=== PATIENT | female | born 1995 | race Hispanic/Latino ===

== ENCOUNTER 2025-01-25 06:15 | Day surgery (SDC) | payer BC ==
[2025-01-24 11:00] VITALS: BP 117/78; PULSE 68; RESP 18; TEMP 98.4
[2025-01-24 11:31] LABS: BASOPHILS # (AUTO) 0.02 K/uL (0.00-0.20); BASOPHILS % (AUTO) 0.2 % (0.0-5.0); EOSINOPHILS # (AUTO) 0.06 K/uL (0.00-0.70); EOSINOPHILS % (AUTO) 0.7 % (0.0-8.0); HEMATOCRIT 43.2 % (36-48); IMMATURE GRANULOCYTE ABSOLUTE 0.01 K/uL (0-1); LYMPHOCYTES # (AUTO) 1.7 K/uL (1.0-4.8); MEAN CORPUSCULAR HEMOGLOBIN 29.3 pg (27.0-33.0); MEAN CORPUSCULAR HGB CONC 32.9 g/dL (32.0-36.0); MEAN CORPUSCULAR VOLUME 89.3 fL (79-99); MONOCYTES # (AUTO) 0.5 K/uL (0.1-1.0); MONOCYTES % (AUTO) 5.7 % (3.0-13.0); NEUTROPHILS # (AUTO) 5.8 K/uL (1.8-7.7); NEUTROPHILS % (AUTO) 72.3 % (40.0-77.0); PLATELET COUNT (AUTO) 161 K/uL (130-400); RED BLOOD CELL COUNT(AUTO) 4.84 MIL/uL (4.00-5.50); RED CELL DISTRIBUTION WIDTH 14.4 % (11.0-15.5)
[~2025-01-25] VITALS: Ht 157.5 cm; Wt 77.9 kg
[2025-01-25] VITALS (14 sets, daily range): BP systolic 86–110; BP diastolic 48–68; PULSE 66–90; RESP 14–18; TEMP 97–97.6
[2025-01-25] MEDS: LACTATED RINGERS 1000ML 1,000 ML IV ONE (06:59)
[2025-01-25] MEDS ORDERED: FAMOTIDINE 20MG VIAL IV ONE (07:03)
[2025-01-25] MEDS ORDERED: ROPivacaine 0.5% 5MG/ML 30ML ONE (07:12)
[2025-01-25] MEDS ORDERED: ketaMINE 50MG/ML SYRINGE 50 MG/ML DISP.SYRIN ONE (07:12)
[2025-01-25] MEDS ORDERED: LIDOCAINE HCL-MPF 2% 10ML AMP IJ ONE (07:17)
[2025-01-25] MEDS ORDERED: FENTanyl CITRate PF 50 MCG/1 ML 2ML VIAL ONE (07:18)
[2025-01-25] MEDS ORDERED: rocuRONium bROMide 10MG/1ML 5ML VL ONE (07:18)
[2025-01-25] MEDS ORDERED: proPOFol 10 MG/ML 20ML VIAL IV ONE (07:18)
[2025-01-25] MEDS ORDERED: dexaMETHasone SOD PHOSPHATE 10MG/ML 1ML VIAL ONE (07:29)
[2025-01-25] MEDS ORDERED: ondanSETRON 4MG INJ ONE (07:29)
[2025-01-25] MEDS: ceFAZolin SODIUM 2 GM VIAL ONE (07:40)
[2025-01-25] MEDS: ROPivacaine 0.5% 5MG/ML 30ML ONE (07:49)
[2025-01-25] MEDS ORDERED: MIDAZOLAM HCL 1 MG/ML 2ML VIAL ONE (07:51)
[2025-01-25] MEDS ORDERED: ketOROlac 30MG VIAL (30MG/ML) ONE (07:58)
[2025-01-25] MEDS: dexaMETHasone SOD PHOSPHATE 4 MG/ML 1ML VIAL ONE (08:21)
[2025-01-25] MEDS ORDERED: GLYCOPYRROLATE 0.2 MG/ML 5 ML VIAL ONE (08:35)
[2025-01-25] MEDS ORDERED: NEOSTIGMINE METHYLSULFATE 1MG/ML IV ONE (08:35)
[2025-01-25] MEDS: acetaMINOPHEN 100 ML ONE (09:25)
--- NOTE | 2025-01-25 09:38 | OP ---
Operative Note: DATE OF PROCEDURE: 01/25/25 SURGEON: STACY LONG DPM DIRECTOR PAYMENT: None ANESTHESIA: General PREOPERATIVE DIAGNOSIS: 1. Achilles tendinosis and intrasubstance tear, chronic right 2. Painful hypertrophic scar right ankle POSTOPERATIVE DIAGNOSIS: Same Findings: There is multiple nonabsorbable stitches found an Achilles tendon PROCEDURE: 1. Achilles tendon repair, right 2. Excision of painful hypertrophic scar with complex closure with advancement Z-plasty right ankle ESTIMATED BLOOD LOSS: Minimal INDICATIONS: Patient had Achilles tendon procedure by other surgeon previously which formed painful scar and MRI shows longitudinal tear with tendinosis at the midsubstance of the Achilles tendon. Previous surgery also resulted in hypertrophic scar. Injectables: 5 cc of 0.5% bupivacaine plain and 5 cc of 9-1 ratio of 0.5% b upivacaine with 4 mg of dexamethasone phosphate Specimen: Hypertrophic scar and Achilles tendon right Materials: More fix 3.5 mm anchor, 4-0 nylon, 3-0 nylon, 4-0 Vicryl Hemostasis: Pneumonic thigh tourniquet at 300 mm Hg DESCRIPTION OF PROCEDURE: The patient was brought into the operating room and placed on table in a supine position and general anesthesia was induced. Patient was then flipped to the prone position with adequate padding. The patient's right lower extremity was prepped and draped in usual aseptic manner. Time-out was called with all the staff in the room to identify the patient procedure and procedure site. Patient's right lower extremity was then exsanguinated utilizing Esmarch bandage and pneumonic thigh tourniquet was inflated at 300 mm Hg. Procedure 1. Excision of painful scar column hypertrophic scar was identified over the old incision on the posterior aspect of the Achilles tendon at the midsubstance area. Using a multiple Z-plasty, the section of the scar was resected. The Z-plasties were oriented to encompass the scar and the normal tissue. The scar tissue was taken down all the way to the Achilles tendon in 1 full-thickness, care was being taken on the remaining skin to minimize necrosis. The scar tissue was sent to pathology Procedure 2. Repair Achilles tendon right: Achilles tendon was expose released from the surrounding tissue. Some of the Achilles tendon was scarred down to the subcutaneous tissue layer. Care was being taken not to released from the deeper soft tissue to minimize vascular compromise. The Achilles tendon was bulbous and enlarged. Mostly enlarged area was approximately 4 cm from the insertion. A longitudinal incision was made in the middle of the Achilles tendon. The Achilles tendon was reflected medially and laterally. Care was taken not to release the insertion site. It was noted that the there are multiple FiberWire like suture material found in the midsubstance of the Achilles tendon. There is brown scar tissue within the Achilles tendon as well. All the sutures and necrotic Achilles tendon were debrided and passed from the operative site and sent for pathology. Scar like tissue and Achilles tendon was also debrided and passed from the operative site. Achilles tendon was then debr ided to the anatomical size. At this point section of the Achilles tendon was resected in order to shorten the Achilles tendon slightly. Care was being taken to release completely but to remain the medial and lateral bands to be intact for strength. At this point suture anchor was inserted into the calcaneal tuber just anterior to the Achilles tendon insertion on the dorsal surface of the calcaneal tuber. The sutures were used reinforce the remaining Achilles tendon and also shortened portion of the Achilles tendon to avoid accidental rupture during the recovery time. Full nylon was used to tubularize the remaining Achilles tendon. Micro tenotomy was achieved on the rest of the tendon utilizing 11 blade. At this point the surgical wound was irrigated aggressively utilizing copious amounts of normal sterile saline with a pressure. Subcutaneous tissue layer was reapproximated utilizing 4-0 Vicryl. Procedure 1. To finish the advancement multiple continuous Z-plasty skin edges were reapproximated and apical stitches were placed on the apices of the skin plasty. Remaining edges were reapproximated utilizing single interrupted stitch technique. Pneumonic thigh tourniquet was deflated. There was no major bleeder. The surgical wound was dressed with dry sterile dressing followed by Lopez compression dressing followed by a posterior splint. Patient tolerated the procedure and anesthesia well STACY LONG DPM Jan 25, 2025 09:38
== END 2025-01-25 10:30 ==
LOC: DAH 06:15
PROVIDERS: ATTEND Podiatrist
DX: M76.61 Achilles tendinitis, right leg (principal); L91.0 Hypertrophic scar; M67.873 Other specified disorders of tendon, right ankle and foot; R52 Pain, unspecified; E66.9 Obesity, unspecified
CPT/HCPCS: 84703; 85025; 36415; 27654; 88304; 88305; A6260; J1100 ×2; C1713; A4663; A4649 ×2; J7120; J3490 ×5; J3010; J2250; J2704; J2405; J1885; J2710; J2795 ×2; J0690; A6223; Q4051; A4930; A4215; A4223; A4222; A4221